=== PATIENT | female | born 1940 | race Caucasian/White ===

== ENCOUNTER 2019-05-04 10:56 | Outpatient (CLI) | payer MEDICARE, SELFPAY ==
--- NOTE | 2019-05-04 11:26 | USCV_ITS ---
NOTE: Report was unsigned for reason: Ordering provider was edited. Original Signature date and time was: 05/04/19; 193 Latonia Martínez Age: 79 Gender: F : 1940 Exam Date: 05/04/2019 11:43 Ordering Phys: NOT ON FILE, DOCTOR XX Technologist: Hazel Napier Exam Location: [facility] [place] Indication: PAIN W/REHAB. ONE WEEK POST KNEE REPLACEMENT HISTORY: KNEE REPLACEMENT X 1 WEEK PROCEDURES: Venous duplex imaging was performed in only the right lower extremity. The following venous structures were evaluated: common femoral vein, profunda vein, proximal portion of the greater saphenous vein, superficial femoral vein, and the popliteal vein. In addition, the posterior tibial and peroneal trunk were evaluated. FINDINGS: SUPERFICIAL THROMBUS GREATER SAPH MID THIGH. ALL OTHER VESSELS IMAGED APPEAR PATENT. DOCTOR'S OFC WAS NOTIFIED OF PRELIM. the vein is relatively small caliber CONCLUSIONS No evidence of DVT in the above-mentioned identifiable veins. Features of venous thrombosis involving the right greater saphenous vein in the proximal and the mid segments causing partial occlusion. Dr Darin Morrison MD [facility] (Electronically Signed) Final Date: 04 May 2019 19:30 S MTDD
== END 2019-05-04 10:57 | disposition home or self-care (01) ==
LOC: RAD 11:06
PROVIDERS: PCP Family Medicine; Visit Provider Orthopaedic Surgery
DX: I82.811 Embolism and thrombosis of superficial veins of right lower extremity (principal); M79.604 Pain in right leg; M79.89 Other specified soft tissue disorders; Z96.651 Presence of right artificial knee joint
CPT/HCPCS: 93971